=== PATIENT | female | born 1985 | race Caucasian/White ===

== ENCOUNTER 2023-05-02 09:01 | Emergency (ER) | payer MEDICAID ==
[~2023-05-02] VITALS: Ht 165.1 cm; Wt 78.0 kg
[2023-05-02 09:41] LABS: BASOPHILS % 0.6 % (0.0-2.0); EOSINOPHILS % 1.7 % (0.0-5.0); HEMATOCRIT. 39.7 % (36.0-48.0); HEMOGLOBIN. 13.8 g/dL (12.0-16.0); LYMPHOCYTES % 21.5 % (20.0-50.0); MEAN CORPUSCULAR HEMOGLOBIN 32.5 pg (28.0-32.0); MEAN CORPUSCULAR VOLUME 93.9 fL (81.0-99.0); MEAN PLATELET VOLUME 7.3 fl (7.4-10.4); MONOCYTES % 6.5 % (2.0-8.0); NEUTROPHILS % 69.7 % (40.0-76.0); PLATELET 346 x1000/uL (130-400); RED BLOOD CELL COUNT 4.23 mill/uL (4.2-5.4); RED CELL DISTRIBUTION WIDTH 13.4 % (11.6-14.6)
[2023-05-02 09:46] LABS: CHLORIDE 110 mEq/L (98-107)
[2023-05-02 09:50] LABS: HCG SCREEN NEGATIVE
[2023-05-02] MEDS ORDERED: VISCOUS LIDOCAINE 2% 15 ML UDC PO STA (09:57)
[2023-05-02] MEDS ORDERED: ACETAMINOPHEN 325MG TABLET PO ONE (10:00)
[2023-05-02] MEDS ORDERED: MAGNESIUM/ALUMINUM HYDROXIDE/SIMETHICONE 30ML UDC PO ONE (10:00)
[2023-05-02] MEDS ORDERED: FAMOTIDINE 20MG TABLET PO ONE (10:00)
[2023-05-02] MEDS ORDERED: ONDANSETRON 4MG ODT PO ONE (10:30)
[2023-05-02] MEDS ORDERED: DIPHENHYDRAMINE 50MG/ML VIAL IV ONE (12:00)
[2023-05-02] MEDS ORDERED: HALOPERIDOL LACTATE 5MG/ML VIAL IM ONE (12:00)
[2023-05-02] MEDS ORDERED: SODIUM CHLORIDE 0.9% 1,000 ML IV ONE (12:00)
[2023-05-02] MEDS ORDERED: METOCLOPRAMIDE HCL 10MG/2ML VIAL IV ONE (12:00)
[2023-05-02 12:06] LABS: CLARITY URINE CLEAR (CLEAR); COLOR URINE YELLOW (YELLOW); KETONES URINE NEGATIVE (NEGATIVE); LEUKOCYTE ESTERASE URINE TRACE (NEGATIVE); NITRITE URINE NEGATIVE (NEGATIVE); OCCULT BLOOD URINE TRACE (NEGATIVE); PH URINE 6.5 (4.5-8.0); PROTEIN URINE NEGATIVE (NEGATIVE); SPECIFIC GRAVITY URINE 1.008 (1.005-1.030); UROBILINOGEN URINE 0.2 E.U./dL (0.2-1.0)
[2023-05-02 12:30] LABS: T4 FREE 1.02 ng/dL (0.76-1.46)
[2023-05-02] MEDS ORDERED: CEFTRIAXONE 1GM PREMIX 50 ML IV ONE (13:30)
[2023-05-02] MEDS ORDERED: METRONIDAZOLE 500 MG PREMIX 100 ML IV ONE (13:30)
[2023-05-02] MEDS ORDERED: GUAIFENESIN 200MG/10ML SUGAR FREE UDC PO PRN (16:15)
[2023-05-02] MEDS ORDERED: PIPERACILLIN/TAZ 3.375G PREMIX 50 ML IV NR (16:15)
[2023-05-02] MEDS ORDERED: KETOROLAC 15MG/ML VIAL IV PRN (16:15)
[2023-05-02] MEDS ORDERED: ACETAMINOPHEN 325MG TABLET PO PRN ×2 (16:15)
[2023-05-02] MEDS ORDERED: CLONIDINE 0.1MG TABLET PO PRN (16:15)
[2023-05-02] MEDS ORDERED: ZOLPIDEM TARTRATE 5MG TABLET PO PRN (16:15)
[2023-05-02] MEDS ORDERED: IPRATROPIUM/ALBUTEROL 0.5-3(2.5)MG/3ML NEB NEB PRN (16:15)
[2023-05-02] MEDS ORDERED: DEXT 5%/LACTATED RINGERS 1,000 ML IV SCH (16:15)
[2023-05-02] MEDS ORDERED: ONDANSETRON HCL 4MG/2ML INJ IV PRN (16:15)
[2023-05-02] MEDS ORDERED: NITROGLYCERIN 0.4MG TABLET SL SL PRN (16:15)
[2023-05-02] MEDS ORDERED: MAGNESIUM/ALUMINUM HYDROXIDE/SIMETHICONE 30ML UDC PO PRN (16:15)
[2023-05-02] MEDS ORDERED: DOCUSATE SODIUM 100MG CAPSULE PO PRN (16:15)
[2023-05-02] MEDS ORDERED: ENOXAPARIN 40MG/0.4ML SYR SUBCUT SCH (17:00)
[2023-05-02 17:32] LABS: VITAMIN B12 SERUM 463 pg/mL (211-911)
[2023-05-02 18:23] VITALS: BP 114/72
[2023-05-02] MEDS ORDERED: PIPERACILLIN/TAZOBACTAM 3.375G in DEXT 5% WATER 50ML IV SCH (22:00)
[2023-05-03] MEDS ORDERED: PANTOPRAZOLE SODIUM 40 MG/VIAL IV SCH (09:00)
[2023-05-03 13:08] LABS: *AMPHETAMINES SCREEN URINE NEGATIVE (NEGATIVE); *BARBITURATES SCREEN URINE NEGATIVE (NEGATIVE); *BENZODIAZEPINES SCREEN URINE NEGATIVE (NEGATIVE); *COCAINE SCREEN URINE NEGATIVE (NEGATIVE); CANNABINOID URINE SCREEN NEGATIVE (NEGATIVE); METHADONE URINE SCREEN NEGATIVE (NEGATIVE); OPIATES URINE SCREEN NEGATIVE (NEGATIVE); PHENCYCLIDINE URINE SCREEN NEGATIVE (NEGATIVE)
== END 2023-05-02 18:28 | disposition left against medical advice (07) ==
LOC: ER 09:01 → EDBEDREQTM 15:59 → EDBEDREQ 15:59 → ER 18:28 → CANBEDREQ 05-03 00:51
DX: K81.0 Acute cholecystitis (principal); R11.2 Nausea with vomiting, unspecified
CPT/HCPCS: 36415; 74176; 76705; 80053; 80305; 81003; 82607; 83036; 83690; 84439; 84443; 84481; 84703; 85025; 96361; 96365; 96366; 96367; 96368; 99285; J0696; J2543; J3490; J7030; Q0162; Z7610

== ENCOUNTER 2024-05-31 04:47 | Emergency (ER) | payer MEDICAID ==
[~2024-05-31] VITALS: Ht 165.1 cm; Wt 82.0 kg
[2024-05-31 04:49] VITALS: O2SAT 99
[2024-05-31 04:57] VITALS: BP 128/72; PULSE 93; RESP 15; TEMP 98.1
== END 2024-05-31 07:02 | disposition left against medical advice (07) ==
LOC: ER 04:47
DX: R07.9 Chest pain, unspecified (principal); Z53.21 Procedure and treatment not carried out due to patient leaving prior to being seen by health care provider
CPT/HCPCS: 93005